=== PATIENT | female | born 1990 | race Two or more races ===

== ENCOUNTER → 2017-10-16 | Day surgery (SDC) | payer OTHER ==
[~2017-10-16] VITALS: Ht 165.1 cm; Wt 71.7 kg
== END | disposition home or self-care (01) ==
LOC: ER 08:36 → CIR.AMB 10:42
DX: O02.1 Missed abortion (principal); Z3A.08 8 weeks gestation of pregnancy

== ENCOUNTER 2023-01-02 11:24 | Day surgery (SDC) | payer OTHER | END 2023-01-02 20:15 | disposition home or self-care (01) | LOC: CIR.AMB 11:24 | PROVIDERS: ATTEND Student in an Organized Health Care Education/Training Program | DX: Z30.2 Encounter for sterilization (principal); Z20.822 Contact with and (suspected) exposure to COVID-19 ==